=== PATIENT | male | born 1965 | race American Indian/Alaskan Native ===

== ENCOUNTER 2016-09-26 12:47 | Outpatient (CLI) | payer MEDICARE ==
[2016-09-26] MEDS ORDERED: XYLOCAINE TOPICAL 4% TP ONE (15:54)
== END 2016-09-26 12:48 | disposition home or self-care (01) ==
LOC: WOUND 12:47
PROVIDERS: ATTEND Podiatrist
DX: T24.301A Burn of third degree of unspecified site of right lower limb, except ankle and foot, initial encounter (principal); T31.0 Burns involving less than 10% of body surface; L89.313 Pressure ulcer of right buttock, stage 3; L97.812 Non-pressure chronic ulcer of other part of right lower leg with fat layer exposed; G82.21 Paraplegia, complete; F41.9 Anxiety disorder, unspecified; G83.9 Paralytic syndrome, unspecified; F17.210 Nicotine dependence, cigarettes, uncomplicated; Z96.641 Presence of right artificial hip joint; Z89.422 Acquired absence of other left toe(s); X16.XXXA Contact with hot heating appliances, radiators and pipes, initial encounter; Y93.89 Activity, other specified; Y92.89 Other specified places as the place of occurrence of the external cause; Y99.8 Other external cause status
CPT/HCPCS: 11042; 87075; 87116; G0463